=== PATIENT | female | born 2005 | race African-American/Black ===

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

== ENCOUNTER 2024-01-10 15:05 | Emergency (ER) | payer OTHER ==
[2024-01-10 15:22] VITALS: BP 124/63; PULSE 100; RESP 20; TEMP 98
--- NOTE | 2024-01-10 16:12 | ED ---
Lower Extremity Injury HPI - General Chief Complaint: Extremity Injury, Lower Stated Complaint: fall,ankle injury Time Seen by Provider: 01/10/24 15:41 Source: patient Mode of arrival: wheelchair Limitations: no limitations - History of Present Illness Initial Comments: Jackie 19-year-old female presents ER today for evaluation of right ankle pain. Patient reports that yesterday evening she slipped while walking down the stairs and fell hitting her right ankle. Since that time she has had redness swelling and pain. Pain is worse with weightbearing. Patient states she has been applying ice and keeping it elevated with minimal relief. - Related Data Previous Rx's Medication Instructions Recorded Ondansetron Odt [Zofran Odt] 4 mg PO Q8HR PRN #20 tab 10/19/22 Allergies Allergy/AdvReac Type Severity Reaction Status Date / Time amoxicillin Allergy Swelling Verified 01/27/23 10:47 Review of Systems ROS Statement: Those systems with pertinent positive or pertinent negative responses have been documented in the HPI. ROS Other: All systems not noted in ROS Statement are negative. Past Medical History Past Medical History: Asthma History of Any Multi-Drug Resistant Organisms: None Reported Past Surgical History: No Surgical Hx Reported Past Psychological History: Anxiety Smoking Status: Never smoker Past Alcohol Use History: None Reported Past Drug Use History: Marijuana General Exam - General Exam Comments Initial Comments: Physical Exam GENERAL: Patient is well-developed and well-nourished. Patient is nontoxic and well-hydrated and is in no distress. HENT: Normocephalic, Atraumatic. EYES: PERRL, EOMI PULMONARY: Unlabored respirations. CARDIOVASCULAR: RRR Warm and well perfused extremities ABDOMEN: Non-distended SKIN: Bruising over the lateral malleolus of the right ankle : Deferred NEUROLOGIC: Alert and oriented Normal speech Normal gait MUSCULOSKELETAL: Effusion of right ankle with decreased range of motion PSYCHIATRIC: No SI/HI Limitations: no limitations Course Vital Signs 01/10/24 15:12 Temperature 98 F Pulse Rate 100 Respiratory 20 Rate Blood Pressure 124/63 O2 Sat by Pulse 99 Oximetry Medical Decision Making - Medical Decision Making Was pt. sent in by a medical professional or institution (, PA, CHAIN PERSON, urgent care, hospital, or halfway...) When possible be specific @ -No Did you speak to anyone other than the patient for history (EMS, parent, family, police, friend...)? What history was obtained from this source @ -No Did you review nursing and triage notes (agree or disagree)? Why? @ -I reviewed and agree with nursing and triage notes Were old charts reviewed (outside hosp., previous admission, EMS record, old EKG, old radiological studies, urgent care reports/EKG's, halfway records)? Report findings @ -No old charts were reviewed Differential Diagnosis (chest pain, altered mental status, abdominal pain women, abdominal pain men, vaginal bleeding, weakness, fever, dyspnea, syncope, headache, dizziness, GI bleed, back pain, seizure, CVA, palpatations, mental health)? @ -Not applicable EKG interpreted by me (3pts min.). @ -As above X-rays interpreted by me (1pt min.). @ -No obvious fractures or dislocations soft tissues swelling noted CT interpreted by me (1pt min.). @ -None done U/S interpreted by me (1pt. min.). @ -None done What testing was considered but not performed or refused? (CT, X-rays, U/S, labs)? Why? @ -None What meds were considered but not given or refused? Why? @ -None Did you discuss the management of the patient with other professionals (professionals i.e. , PA, CHAIN PERSON, lab, RT, psych nurse, social sciences research scientist, front desk representative, teacher, vessel traffic officer, caseworker)? Give summary @ -No Was smoking cessation discussed for >3mins.? @ -No Was critical care preformed (if so, how long)? @ -No Were there social determinants of health that impacted care today? How? (Homelessness, low income, unemployed, alcoholism, drug addiction, transportation, low edu. Level, literacy, decrease access to med. care, senior living, rehab)? @ -No Was there de-escalation of care discussed even if they declined (Discuss DNR or withdrawal of care, Hospice)? DNR status @ -No What co-morbidities impacted this encounter? (DM, HTN, Smoking, COPD, CAD, Cancer, CVA, ARF, Chemo, Hep., AIDS, mental health diagnosis, sleep apnea, morbid obesity)? @ -None Was patient admitted / discharged? Hospital course, mention meds given and route, prescriptions, significant lab abnormalities, going to OR and other pertinent info. @ -Left without completing care The patient was seen and evaluated history is obtained from patient, x-ray was obtained patient's pain was treated with Toradol. Patient did not want a wait for results and walked out of the ER. Undiagnosed new problem with uncertain prognosis? @ -No Drug Therapy requiring intensive monitoring for toxicity (Heparin, Nitro, Insulin, Cardizem)? @ -No Were any procedures done? @ -No Diagnosis/symptom? @ -Right ankle pain Acute, or Chronic, or Acute on Chronic? @ -Acute Uncomplicated (without systemic symptoms) or Complicated (systemic symptoms)? @ -Default Side effects of treatment? @ -No Exacerbation, Progression, or Severe Exacerbation? @ -No Poses a threat to life or bodily function? How? (Chest pain, [place], [place], pneumonia, PE, COPD, DKA, ARF, appy, cholecystitis, CVA, Diverticulitis, Homicidal, Suicidal, threat to staff... and all critical care pts) @ -No Disposition Clinical Impression: Right ankle pain Disposition: HOME SELF-CARE Condition: Stable Is patient prescribed a controlled substance at d/c from ED?: No Referrals: None,Stated [Primary Care Provider] - 1-2 days Aubrey Lilly MD [Medical Doctor] - 1-2 days
[2024-01-10] MEDS: KETOROLAC 15 MG/ML 1 ML VIAL IM STA (16:29)
--- NOTE | 2024-01-10 17:28 | XR ---
EXAMINATION TYPE: XR ankle complete RT DATE OF EXAM: 01/10/2024 COMPARISON: NONE HISTORY: 19 year-old female right ankle injury, pain and swelling TECHNIQUE: 3 views FINDINGS: Mild lateral soft tissue swelling. Ankle mortise is congruent. There is subtle cortical irr egularity along the lateral margin of the distal fibula, suspected physeal scar. Preservation of the distal tibiofibular overlap. Otherwise, no acute fracture, subluxation, dislocation is seen. IMPRESSION: 1. Mild lateral soft tissue swelling. There is slight cortical irregularity along the lateral margin of the distal fibula probably related to a physeal scar. Correlate for any point tenderness to exclud e a subtle incomplete cortical fracture. Follow up in 10-14 days to reassess as clinically indicated. 2. No other acute osseous abnormality seen.
== END 2024-01-10 17:50 | disposition home or self-care (01) ==
LOC: EC 15:05
DX: M25.571 Pain in right ankle and joints of right foot (principal); J45.909 Unspecified asthma, uncomplicated; F12.90 Cannabis use, unspecified, uncomplicated; Z86.59 Personal history of other mental and behavioral disorders; Z88.0 Allergy status to penicillin; W10.9XXA Fall (on) (from) unspecified stairs and steps, initial encounter
CPT/HCPCS: 73610; 99283; 96372; J1885

== ENCOUNTER 2024-03-20 15:03 | Emergency (ER) | payer OTHER ==
--- NOTE | 2024-03-20 15:19 | ED ---
Abdominal Pain HPI - General Source: patient, family, RN notes reviewed Mode of arrival: wheelchair Limitations: no limitations <Sylvia Elizabeth - Last Filed: 03/20/24 15:18> - General Source: RN notes reviewed <Cortney Javed - Last Filed: 03/20/24 21:33> - General Stated Complaint: stomach pain Time Seen by Provider: 03/20/24 15:18 - History of Present Illness Initial Comments: Quick note: 19-year-old female presenting to the ER with a chief complaint of abdominal pain. Patient states she woke up this morning in extreme suprapubic abdominal pain with nausea and vomiting. Patient also states she has not had her menstrual cycle in 3 months. She has taken 4 urine test which were negative. Admits to vaginal spotting yesterday. Also admits to recent chills and history of ovarian cyst. (Sylvia Elizabeth) 19-year-old female with history of ovarian cyst presenting to the ER with abdominal pain x 1 day. Patient states she woke up this morning with severe suprapubic pain that radiates to the back with nausea and vomiting. She describ es the pain as sharp and intermittently worsens. Patient reports she has not had her menstrual cycle in 3 months and has taken 4 urine test which are all negative. She admits to vaginal spotting yesterday. She is not able to keep anything down due to the vomiting. She tried taking Tylenol for the pain with little relief. She has never had this pain before. Denies dysuria, urinary frequency, urinary urgency, history of kidney stones. (Cortney Javed) - Related Data Previous Rx's Medication Instructions Recorded Ondansetron Odt [Zofran Odt] 4 mg PO Q8HR PRN #20 tab 10/19/22 Allergies Allergy/AdvReac Type Severity Reaction Status Date / Time amoxicillin Allergy Swelling Verified 03/20/24 15:41 Review of Systems ROS Other: All systems not noted in ROS Statement are negative. <Sylvia Elizabeth - Last Filed: 03/20/24 15:18> ROS Other: All systems not noted in ROS Statement are negative. <Cortney Javed - Last Filed: 03/20/24 21:33> ROS Statement: Those systems with pertinent positive or pertinent negative responses have been documented in the HPI. Past Medical History Past Medical History: Asthma History of Any Multi-Drug Resistant Organisms: None Reported Past Surgical History: No Surgical Hx Reported Past Psychological History: Anxiety Smoking Status: Never smoker Past Alcohol Use History: None Reported Past Drug Use History: Marijuana <Sylvia Elizabeth - Last Filed: 03/20/24 15:18> General Exam <Sylvia Elizabeth - Last Filed: 03/20/24 15:18> General appearance: alert, in no apparent distress, anxious Head exam: Present: atraumatic, normocephalic, normal inspection Eye exam: Present: normal appearance, PERRL, EOMI. Absent: scleral icterus, conjunctival injection, periorbital swelling ENT exam: Present: normal exam, mucous membranes moist Respiratory exam: Present: normal lung sounds bilaterally. Absent: respiratory distress, wheezes, rales, rhonchi, stridor Cardiovascular Exam: Present: regular rate, normal rhythm, normal heart sounds. Absent: systolic murmur, diastolic murmur, rubs, gallop, clicks GI/Abdominal exam: Present: soft, tenderness (Diffuse tenderness in suprapubic area.), normal bowel sounds. Absent: distended, guarding, rebound, rigid Extremities exam: Present: normal inspection, full ROM, normal capillary refill. Absent: tenderness, pedal edema, joint swelling, calf tenderness Back exam: Present: normal inspection. Absent: CVA tenderness (R), CVA tenderness (L), rash noted Neurological exam: Present: alert, oriented X3, CN II-XII intact Psychiatric exam: Present: normal affect, normal mood, anxious Skin exam: Present: warm, dry, intact, normal color. Absent: rash <Cortney Javed - Last Filed: 03/20/24 21:33> - General Exam Comments Initial Comments: Visual Physical Exam Vital signs reviewed General: Uncomfortable and in pain Head: Normocephalic, atraumatic Eyes: PERRLA, EOMI ENT: Airway patent Chest: Nonlabored breathing Skin: No visual rash, normal skin tone Neuro: Alert and oriented 3 Musculoskeletal: No gross abnormalities (Sylvia Elizabeth) Course Vital Signs 03/20/24 03/20/24 03/20/24 15:37 19:00 19:40 Temperature 98 F 98.1 F 98.8 F Pulse Rate 92 60 106 H Respiratory 18 18 18 Rate Blood Pressure 106/72 100/52 113/89 O2 Sat by Pulse 98 96 95 Oximetry 03/20/24 20:58 Temperature Pulse Rate 72 Respiratory 18 Rate Blood Pressure 131/68 O2 Sat by Pulse 95 Oximetry Medical Decision Making <Sylvia Elizabeth - Last Filed: 03/20/24 15:18> - Lab Data Result diagrams: 03/20/24 16:28 03/20/24 16:28 <Cortney Javed - Last Filed: 03/20/24 21:33> - Medical Decision Making I performed the quick note portion of this chart. Electronically signed by Sylvia Elizabeth PA-C (Sylvia Elizabeth) Was pt. sent in by a medical professional or institution ([facility], YOUTH OFFICER, urgent care, hospital, or fdc...) When possible be specific @ -No Did you speak to anyone other than the patient for history (EMS, parent, family, police, friend...)? What history was obtained from this source @ -Patient's boyfriend supplemented history Did you review nursing and triage notes (agree or disagree)? Why? @ -I reviewed and agree with nursing and triage notes Were old charts reviewed (outside hosp., previous admission, EMS record, old EKG, old radiological studies, urgent care reports/EKG's, fdc records)? Report findings @ -No old charts were reviewed Differential Diagnosis (chest pain, altered mental status, abdominal pain women, abdominal pain men, vaginal bleeding, weakness, fever, dyspnea, syncope, headache, dizziness, GI bleed, back pain, seizure, CVA, palpatations, mental health, musculoskeletal)? @ -Differential Abdominal Pain Women: Appendicitis, Cholecystitis, diverticulosis, ischemic bowel, pancreatitis, hepatitis, UTI, gastroenteritis, AAA, incarcerated hernia, bowel obstruction, constipation, inflammatory bowel, hepatitis, peptic ulcer disease, splenic infarction, perforated viscus, vulvitis, ovarian torsion, PID, kidney stone, placenta abruption, this is not meant to be an all-inclusive list EKG interpreted by me (3pts min.). @ -None X-rays interpreted by me (1pt min.). @ -None done CT interpreted by me (1pt min.). @ -CT of abdomen pelvis reveal large left ovary with higher density fluid in the pelvis, suggesting hemorrhagic cyst U/S interpreted by me (1pt. min.). @ -Pelvic ultrasound reveals moderate free fluid in abdomen, heterogeneous left ovary with underlying complex lesion, right ovary not visualized due to bowel gas What testing was considered but not performed or refused? (CT, X-rays, U/S, labs)? Why? @ -None What meds were considered but not given or refused? Why? @ -None Did you discuss the management of the patient with other professionals (professionals i.e. , PA, YOUTH OFFICER, lab, RT, psych nurse, social worker aide, door to door lead generation, teacher, combat information center officer, correctional counselor/case manager)? Give summary @ -No Was smoking cessation discussed for >3mins.? @ -No Was critical care preformed (if so, how long)? @ -No Were there social determinants of health that impacted care today? How? (Homelessness, low income, unemployed, alcoholism, drug addiction, transportation, low edu. Level, literacy, decrease access to med. care, senior care, rehab)? @ -No Was there de-escalation of care discussed even if they declined (Discuss DNR or withdrawal of care, Hospice)? DNR status @ -No What co-morbidities impacted this encounter? (DM, HTN, Smoking, COPD, CAD, Cancer, CVA, ARF, Chemo, Hep., AIDS, mental health diagnosis, sleep apnea, morbid obesity)? @ -None Was patient admitted / discharged? Hospital course, mention meds given and route, prescriptions, significant lab abnormalities, going to OR and other pertinent info. @ -Patient was discharged. Patient was seen and evaluated for suprapubic pain since this morning. Patient has not had a menstrual period in 3 months and admits intermittent vaginal spotting. Vitals are within normal limits. Ultrasound performed which revealed moderate free fluid in abdomen, heterogeneous left ovary with underlying complex lesion, right ovary not visualized due to bowel gas. Lab work unremarkable. Urine unremarkable and urine negative. Patient was given Toradol, Zofran, and IV fluids. Due to right ovary not visualized due to bowel gas, CT of abdomen and pelvis was performed to rule out ovarian torsion. CT of abdomen pelvis revealed large left ovary with high density fluid in the pelvis, consistent with hemorrhagic cyst, no sign of torsion or inflammation.. Patient was feeling much better upon reevaluation and is sitting up, conversing and laughing with boyfriend comfortably on stretcher. Discussed diagnosis of hemorrhagic left cyst with patient. Strict return/alarm symptoms discussed with patient in detail patient shows understanding and agrees to plan. Advise close follow-up with ELEVATOR CONDUCTOR for repeat ultrasound. Patient discharged in stable condition. Case discussed with Dr. Warner. Undiagnosed new problem with uncertain prognosis? @ -No Drug Therapy requiring intensive monitoring for toxicity (Heparin, Nitro, Insulin, Cardizem)? @ -No Were any procedures done? @ -No Diagnosis/symptom? @ -Left hemorrhagic cyst Acute, or Chronic, or Acute on Chronic? @ -Acute Uncomplicated (without systemic symptoms) or Complicated (systemic symptoms)? @ -Complicated Side effects of treatment? @ -No Exacerbation, Progression, or Severe Exacerbation? @ -No Poses a threat to life or bodily function? How? (Chest pain, USA, PA, pneumonia, PE, COPD, DKA, ARF, appy, cholecystitis, CVA, Diverticulitis, Homicidal, Suicidal, threat to staff... and all critical care pts) @ -No (Cortney Javed) - Lab Data Lab Results 03/20/24 03/20/24 03/20/24 Range/Units 16:28 16:28 16:57 WBC 9.1 (4.0-11.0) k/uL RBC 4.15 (3.80-5.40) m/uL Hgb 13.1 (11.4-16.0) gm/dL Hct 40.7 (34.0-46.0) % MCV 97.9 (80.0-100.0) fL MCH 31.5 (25.0-35.0) pg MCHC 32.2 (31.0-37.0) g/dL RDW 14.5 (11.5-15.5) % Plt Count 268 (150-450) k/uL MPV 7.5 Neutrophils % 69 % Lymphocytes % 24 % Monocytes % 5 % Eosinophils % 1 % Basophils % 1 % Neutrophils # 6.3 (1.3-7.7) k/uL Lymphocytes # 2.2 (1.0-4.8) k/uL Monocytes # 0.4 (0-1.0) k/uL Eosinophils # 0.1 (0-0.7) k/uL Basophils # 0.1 (0-0.2) k/uL Sodium 143 (137-145) mmol/L Potassium 4.2 (3.5-5.1) mmol/L Chloride 108 H (98-107) mmol/L Carbon Dioxide 20 L (22-30) mmol/L Anion Gap 15 mmol/L BUN 6 L (7-17) mg/dL Creatinine 0.52 (0.52-1.04) mg/dL Est GFR (CKD-EPI)AfAm >90 (>60 ml/min/1.73 sqM) Est GFR (CKD-EPI)NonAf >90 (>60 ml/min/1.73 sqM) Glucose 117 H (74-99) mg/dL Plasma Lactic Acid Rajiv (0.7-2.0) mmol/L Calcium 9.5 (8.4-10.2) mg/dL Total Bilirubin 1.2 (0.2-1.3) mg/dL AST 36 (14-36) U/L ALT 19 (4-34) U/L Alkaline Phosphatase 60 (38-126) U/L Total Protein 7.9 (6.3-8.2) g/dL Albumin 5.0 (3.5-5.0) g/dL Urine Color Yellow Urine Appearance Cloudy H (Clear) Urine pH 5.5 (5.0-8.0) Ur Specific [place] 1.025 (1.001-1.035) Urine Protein Trace H (Negative) Urine Glucose (UA) Negative (Negative) Urine Ketones Negative (Negative) Urine Blood Negative (Negative) Urine Nitrite Negative (Negative) Urine Bilirubin Negative (Negative) Urine Urobilinogen <2.0 (<2.0) mg/dL Ur Leukocyte Esterase Moderate H (Negative) Urine RBC 10 H (0-5) /hpf Urine WBC 18 H (0-5) /hpf Ur Squamous Epith Cells 3 (0-4) /hpf Urine Mucus Few H (None) /hpf Urine HCG, Qual (Not Detectd) 03/20/24 03/20/24 Range/Units 16:57 19:36 WBC (4.0-11.0) k/uL RBC (3.80-5.40) m/uL Hgb (11.4-16.0) gm/dL Hct (34.0-46.0) % MCV (80.0-100.0) fL MCH (25.0-35.0) pg MCHC (31.0-37.0) g/dL RDW (11.5-15.5) % Plt Count (150-450) k/uL MPV Neutrophils % % Lymphocytes % % Monocytes % % Eosinophils % % Basophils % % Neutrophils # (1.3-7.7) k/uL Lymphocytes # (1.0-4.8) k/uL Monocytes # (0-1.0) k/uL Eosinophils # (0-0.7) k/uL Basophils # (0-0.2) k/uL Sodium (137-145) mmol/L Potassium (3.5-5.1) mmol/L Chloride (98-107) mmol/L Carbon Dioxide (22-30) mmol/L Anion Gap mmol/L BUN (7-17) mg/dL Creatinine (0.52-1.04) mg/dL Est GFR (CKD-EPI)AfAm (>60 ml/min/1.73 sqM) Est GFR (CKD-EPI)NonAf (>60 ml/min/1.73 sqM) Glucose (74-99) mg/dL Plasma Lactic Acid Rajiv 2.1 H* (0.7-2.0) mmol/L Calcium (8.4-10.2) mg/dL Total Bilirubin (0.2-1.3) mg/dL AST (14-36) U/L ALT (4-34) U/L Alkaline Phosphatase (38-126) U/L Total Protein (6.3-8.2) g/dL Albumin (3.5-5.0) g/dL Urine Color Urine Appearance (Clear) Urine pH (5.0-8.0) Ur Specific [place] (1.001-1.035) Urine Protein (Negative) Urine Glucose (UA) (Negative) Urine Ketones (Negative) Urine Blood (Negative) Urine Nitrite (Negative) Urine Bilirubin (Negative) Urine Urobilinogen (<2.0) mg/dL Ur Leukocyte Esterase (Negative) Urine RBC (0-5) /hpf Urine WBC (0-5) /hpf Ur Squamous Epith Cells (0-4) /hpf Urine Mucus (None) /hpf Urine HCG, Qual Not Detected (Not Detectd) Disposition <Sylvia Elizabeth - Last Filed: 03/20/24 15:18> Is patient prescribed a controlled substance at d/c from ED?: No Time of Disposition: 20:45 <Cortney Javed - Last Filed: 03/20/24 21:33> Clinical Impression: Hemorrhagic cyst of left ovary Disposition: HOME SELF-CARE Condition: Stable Instructions (If sedation given, give patient instructions): Ovarian Cyst (ED) Additional Instructions: Please follow-up with machine gun mechanic for repeat ultrasound. Please return to the Emergency Department if symptoms worsen or any other concerns. Referrals: Joseph Ovalles MD [Primary Care Provider] - 1-2 days Jennifer Mcfarlane DO [Doctor of Osteopathic Medicine] - 1-2 days
[2024-03-20 16:16] VITALS: RESP 18
[2024-03-20 16:33] LABS: Basophils # (A) 0.1 k/uL (0-0.2); Basophils % (A) 1 %; Eosinophils # (A) 0.1 k/uL (0-0.7); Eosinophils % (A) 1 %; HCT 40.7 % (34.0-46.0); HGB 13.1 gm/dL (11.4-16.0); Lymphocytes # (A) 2.2 k/uL (1.0-4.8); Lymphocytes % (A) 24 %; MCH 31.5 pg (25.0-35.0); MCHC 32.2 g/dL (31.0-37.0); MCV 97.9 fL (80.0-100.0); Mean Platelet Volume 7.5; Monocytes # (A) 0.4 k/uL (0-1.0); Monocytes % (A) 5 %; Neutrophils # (A) 6.3 k/uL (1.3-7.7); Neutrophils % (A) 69 %; Platelet Count 268 k/uL (150-450); RBC 4.15 m/uL (3.80-5.40); RDW 14.5 % (11.5-15.5); WBC 9.1 k/uL (4.0-11.0)
[2024-03-20 16:46] LABS: ALT 19 U/L (4-34); AST 36 U/L (14-36); African American GFR (CKD) >90 (>60 ml/min/1.73 sqM); Alkaline Phosphatase 60 U/L (38-126); Anion Gap 15 mmol/L; Blood Urea Nitrogen 6 mg/dL (7-17); Calcium 9.5 mg/dL (8.4-10.2); Carbon Dioxide 20 mmol/L (22-30); Chloride 108 mmol/L (98-107); Glucose 117 mg/dL (74-99); Non-African American GFR(CKD) >90 (>60 ml/min/1.73 sqM); Potassium 4.2 mmol/L (3.5-5.1); Sodium 143 mmol/L (137-145); Total Bilirubin 1.2 mg/dL (0.2-1.3); Total Protein 7.9 g/dL (6.3-8.2)
[2024-03-20] MEDS: SODIUM CHLORIDE 0.9% 1,000 ML IV STA (17:14)
[2024-03-20] MEDS: KETOROLAC 15 MG/ML 1 ML VIAL IVP STA ×2 (17:15→18:36)
[2024-03-20] MEDS: METOCLOPRAMIDE 5 MG/ML 2 ML VIAL IVP STA (17:16)
[2024-03-20 17:20] LABS: Appearance,Urine Cloudy (Clear); Bilirubin,Urine Negative (Negative); Blood,Urine Negative (Negative); Color,Urine Yellow; Glucose,Urine (UA) Negative (Negative); Ketones,Urine Negative (Negative); Leukocyte Esterase,Urine Moderate (Negative); Mucus,Urine Few /hpf; Nitrite,Urine Negative (Negative); PH, Urine 5.5 (5.0-8.0); Protein,Urine Trace (Negative); RBC,Urine 10 /hpf (0-5); Specific Gravity,Urine 1.025 (1.001-1.035); Squamous Epithelial Cell,Urine 3 /hpf (0-4); Urobilinogen,Urine <2.0 mg/dL (<2.0); WBC,Urine 18 /hpf (0-5)
--- NOTE | 2024-03-20 17:26 | US ---
EXAMINATION TYPE: US transvaginal DATE OF EXAM: 03/20/2024 COMPARISON: None CLINICAL INDICATION: Female, 19 years old with history of suprapubic abdominal pain; pain, fever, jackson y tender throughout exam, G0, LMP 3 months ago TECHNIQUE: TA/TV. Transabdominal sonographic images of the pelvis were acquired. Transvaginal sono graphic images Date of LMP: 3 months ago EXAM MEASUREMENTS: Uterus: 7.0 x 3.6 x 3.9 cm Endometrial Stripe: 0.9 cm Right Ovary: not seen Left Ovary: 5.4 x 4.0 x 4.8 cm 1. Uterus: Retroverted wnl 2. Endometrium: wnl 3. Right Ovary: not seen due to bowel gas, tried transabdominal and unable to see right ovary 4. Left Ovary: large in size, heterogeneous appearance with complex lesion 4.7 x 2.7 x 3.9 Spectral, color and waveform doppler imaging shows good arterial and venous flow within the lt ovar y; there is no evidence for lt ovarian torsion. 5. Bilateral Adnexa: free fluid right side 6. Posterior cul-de-sac: wnl IMPRESSION: 1. Moderate amount of free fluid in the abdomen which is more than normally expected for physiologic free fluid correlate with beta hCG to exclude underlying ectopic .. 2. Heterogenous left ovary with underlying complex lesion suggested. There is appropriate arterial a nd venous spectral waveforms to the left ovary. 3. The right ovary is not definitively visualized due to bowel gas.
--- NOTE | 2024-03-20 19:35 | CT ---
EXAMINATION TYPE: CT abdomen pelvis w con CT DLP: 249.9 mGycm, Automated exposure control for dose reduction was used. DATE OF EXAM: 03/20/2024 7:19 PM COMPARISON: Ultrasound same day. CLINICAL INDICATION:Female, 19 years old with history of abdominal pain, acute, nonlocalized; Abdomin al pain N/V, 3mo late on period. Negative HCG tests and spotting yesterday. TECHNIQUE: Axial CT abdomen pelvis w con;Sagittal and coronal reformats were created on a separate w orkstation. Contrast used:100 mL of Isovue 300 with IV Contrast, (none if empty) Oral contrast used: without Oral Contrast (none if empty) FINDINGS: LOWER CHEST: Unremarkable ABDOMEN LIVER: Unremarkable GALLBLADDER AND BILE DUCTS: Unremarkable. PANCREAS: Unremarkable. SPLEEN: Unremarkable. ADRENAL GLANDS: Unremarkable. KIDNEYS AND URETERS: No evidence of hydronephrosis or renal calculus. The ureters are unremarkable. PELVIS BLADDER: Unremarkable REPRODUCTIVE: There is a large left ovary as seen on same day ultrasound. Hounsfield units of the valentin e fluid in the pelvis measuring up to 29-33. The left ovary measures 6.1 x 3.8 x 5.8 cm ABDOMEN & PEL VIS STOMACH AND BOWEL: No evidence of bowel obstruction. PERITONEUM/RETROPERITONEUM: No evidence of pneumoperitoneum or free fluid. VASCULATURE: No evidence of aortic aneurysm. MUSCULOSKELETAL: No acute osseous abnormalities LYMPH NODES: No gross evidence for lymphadenopathy. SOFT TISSUE/ABDOMINAL WALL: Unremarkable IMPRESSION: Large left ovary with higher density fluid in the pelvis suggestive of hemorrhagic cyst in the absenc e of a positive beta hCG. Short-term follow-up pelvic ultrasound should be considered. Correlate with CBC.
[2024-03-20 20:10] VITALS: TEMP 98.8
[2024-03-20] MEDS: ONDANSETRON 4 MG ODT STARTER PACK 2 TAB BTL PO STA (21:00)
[2024-03-20 21:43] VITALS: BP 131/68; PULSE 72
== END 2024-03-20 21:00 | disposition home or self-care (01) ==
LOC: EC 15:03
DX: N83.202 Unspecified ovarian cyst, left side (principal); F12.90 Cannabis use, unspecified, uncomplicated; Z88.0 Allergy status to penicillin
CPT/HCPCS: 36415; 80053; 83605; 85025; 81001; 81025; 93976; 76856; 76830; 74177; 99284; 96374; 96375; 96361 ×2; J2765; J1885; S0119; Q9967

== ENCOUNTER → 2024-11-05 | Outpatient (CLI) | payer OTHER ==
--- NOTE | 2024-11-05 08:27 | US ---
EXAMINATION TYPE: US pelvis complete transvag DATE OF EXAM: 11/05/2024 COMPARISON: US and CT: 03/20/24 CLINICAL INDICATION: Female, 19 years old with history of N83.209; follow up on cyst TECHNIQUE: Transvaginal (TV) and Transabdominal (TA) . Transabdominal grayscale sonographic images of the pelvis were acquired. Transvaginal sonographic im ages were medically necessary to better assess the following anatomy: ovaries Doppler imaging: Color Doppler Images were obtained. FINDINGS: Date of LMP: End of August 2024, irregular periods EXAM MEASUREMENTS: Uterus: 7.3 x 4.5 x 3.7 cm Endometrial Stripe: 0.8 cm Right Ovary: 2.9 x 2.9 x 2.0 cm Left Ovary: 3.5 x 2.9 x 2.0 cm 1. Uterus: Retroverted wnl 2. Endometrium: wnl 3. Right Ovary: multiple follicles seen 4. Left Ovary: multiple follicles seen 5. Bilateral Adnexa: wnl 6. Posterior cul-de-sac: wnl IMPRESSION: No suspicious findings seen to account for patient's clinical symptoms. [facility], , 11/05/2024 8:24 AM
== END | disposition home or self-care (01) ==
LOC: RADUSWWP 07:21
PROVIDERS: ATTEND Internal Medicine
DX: N83.209 Unspecified ovarian cyst, unspecified side (principal)
CPT/HCPCS: 76830; 76856

== ENCOUNTER 2025-05-08 12:41 | Emergency (ER) | payer OTHER ==
[2025-05-08 13:04] VITALS: RESP 16
--- NOTE | 2025-05-08 13:07 | ED ---
Female Urogenital HPI - General Source: patient, RN notes reviewed Mode of arrival: ambulatory Limitations: no limitations - History of Present Illness Last Menstrual Period: 04/23/25 <JavedCortney - Last Filed: 05/08/25 13:06> - General Source: patient, RN notes reviewed Mode of arrival: ambulatory Limitations: no limitations <Sylvia Snider - Last Filed: 05/11/25 06:38> - General Chief complaint: Urogenital Stated complaint: abdominal pain Time Seen by Provider: 05/08/25 13:06 - History of Present Illness Initial comments: Quick [id number] female presenting for urinary urgency x 2 days. States she feels as though she is not able to fully empty bladder. States it feels similar to previous UTIs. Denies vaginal discharge, abdominal pain, or back pain. (Cortney Javed) Presented the ER for evaluation of urinary frequency. She reports that the past 2 days she feels like she is not able to fully empty her bladder and believes she has UTI. States she does have mild dysuria with initiation of urine. She denies any hematuria, abdominal pain, flank/back pain, abnormal vaginal bleeding or discharge. Patient denies . Patient reports symptoms are similar to previous UTIs. Denies fevers or chills (Sylvia Snider) - Related Data Previous Rx's Medication Instructions Recorded Ondansetron Odt [Zofran Odt] 4 mg PO Q8HR PRN #20 tab 10/19/22 Nitrofurantoin Monohyd/M-Cryst 100 mg PO Q12HR #14 cap 05/08/25 [Macrobid] Allergies Allergy/AdvReac Type Severity Reaction Status Date / Time amoxicillin Allergy Swelling Verified 03/20/24 15:41 Review of Systems ROS Other: All systems not noted in ROS Statement are negative. <Cortney Javed - Last Filed: 05/08/25 13:06> ROS Other: All systems not noted in ROS Statement are negative. <Sylvia Snider - Last Filed: 05/11/25 06:38> ROS Statement: Those systems with pertinent positive or pertinent negative responses have been documented in the HPI. Past Medical History Past Medical History: Asthma History of Any Multi-Drug Resistant Organisms: None Reported Past Surgical History: No Surgical Hx Reported Past Psychological History: Anxiety Smoking Status: Never smoker Past Alcohol Use History: None Reported Past Drug Use History: Marijuana <Cortney Javed - Last Filed: 05/08/25 13:06> General Exam Limitations: no limitations <TelloCortney - Last Filed: 05/08/25 13:06> Limitations: no limitations General appearance: alert, in no apparent distress Respiratory exam: Present: normal lung sounds bilaterally. Absent: respiratory distress, wheezes, rales, rhonchi, stridor Cardiovascular Exam: Present: regular rate, normal rhythm, normal heart sounds. Absent: systolic murmur, diastolic murmur, rubs, gallop, clicks GI/Abdominal exam: Present: soft, normal bowel sounds. Absent: distended, tenderness, guarding, rebound, rigid Back exam: Present: normal inspection Neurological exam: Present: alert, oriented X3, CN II-XII intact Skin exam: Present: warm, dry, intact, normal color. Absent: rash <Sylvia Snider - Last Filed: 05/11/25 06:38> - General Exam Comments Initial Comments: Visual Physical Exam Vital signs reviewed General: Well-appearing, nontoxic, no acute distress. Head: Normocephalic, atraumatic Eyes: PERRLA, EOMI ENT: Airway patent Chest: Nonlabored breathing Skin: No visual rash, normal skin tone Neuro: Alert and oriented 3 Musculoskeletal: No gross abnormalities (Cortney Javed) Course Vital Signs 05/08/25 05/08/25 13:01 15:00 Temperature 98.9 F 98.7 F Pulse Rate 67 64 Respiratory 16 16 Rate Blood Pressure 110/55 112/62 O2 Sat by Pulse 97 98 Oximetry Medical Decision Making <Cortney Javed - Last Filed: 05/08/25 13:06> <Sylvia Snider - Last Filed: 05/11/25 06:38> - Medical Decision Making I completed the quick note portion of this chart signed Cortney Javed PA-C (Cortney Javed) Was pt. sent in by a medical professional or institution ([facility], [facility], urgent care, hospital, or skilled nursing...) When possible be specific @ -No Did you speak to anyone other than the patient for history (EMS, parent, family, police, friend...)? What history was obtained from this source @ -No Did you review nursing and triage notes (agree or disagree)? Why? @ -I reviewed and agree with nursing and triage notes Were old charts reviewed (outside hosp., previous admission, EMS record, old EKG, old radiological studies, urgent care reports/EKG's, skilled nursing records)? Report findings @ -No old charts were reviewed Differential Diagnosis (chest pain, altered mental status, abdominal pain women, abdominal pain men, vaginal bleeding, weakness, fever, dyspnea, syncope, headache, dizziness, GI bleed, back pain, seizure, CVA, palpatations, mental health, musculoskeletal)? @ -UTI, STD, nephrolithiasis, ... This list is not meant to be all- inclusive EKG interpreted by me (3pts min.). @ -None X-rays interpreted by me (1pt min.). @ -None done CT interpreted by me (1pt min.). @ -None done U/S interpreted by me (1pt. min.). @ -None done What testing was considered but not performed or refused? (CT, X-rays, U/S, labs)? Why? @ -None What meds were considered but not given or refused? Why? @ -None Did you discuss the management of the patient with other professionals (professionals i.e. , PA, [employer], lab, RT, psych nurse, social and political studies professor, catering server, teacher, employment security officer, heel caser)? Give summary @ -No Was smoking cessation discussed for >3mins.? @ -No Was critical care preformed (if so, how long)? @ -No Were there social determinants of health that impacted care today? How? (Homelessness, low income, unemployed, alcoholism, drug addiction, transportati on, low edu. Level, literacy, decrease access to med. care, usp, rehab)? @ -No Was there de-escalation of care discussed even if they declined (Discuss DNR or withdrawal of care, Hospice)? DNR status @ -No What co-morbidities impacted this encounter? (DM, HTN, Smoking, COPD, CAD, Cancer, CVA, ARF, Chemo, Hep., AIDS, mental health diagnosis, sleep apnea, morbid obesity)? @ -None Was patient admitted / discharged? Hospital course, mention meds given and route, prescriptions, significant lab abnormalities, going to OR and other pertinent info. @ -Discharge. 20-year-old female presented the ER for evaluation of urinary urgency x 2 days. Vital signs stable. Workup initiated in triage given bed availability in emergency department. Upon my evaluation, patient is well- appearing in no signs of acute distress. There is no CVA tenderness or abdominal tenderness on exam. Urinalysis concerning of infection with greater than 182 WBCs, moderate blood and 76 urine RBCs. Urine hCG negative. Urine will be sent for culture. Patient denying concern of STDs but is agreeable for urine screening. Patient denied prophylactic treatment of STDs. Patient be treated for UTI discharged on Macrobid. I advised her to follow-up closely with PCP after antibiotic completion to ensure resolution of UTI. Return parameters discussed. Patient discharged stable condition. Patient verbally expressed understanding agreement care plan. Case discussed with ED attending Dr. Blanco Undiagnosed new problem with uncertain prognosis? @ -No Drug Therapy requiring intensive monitoring for toxicity (Heparin, Nitro, Insulin, Cardizem)? @ -No Were any procedures done? @ -No Diagnosis/symptom? @ -UTI Acute, or Chronic, or Acute on Chronic? @ -Acute Uncomplicated (without systemic symptoms) or Complicated (systemic symptoms)? @ -Uncomplicated Side effects of treatment? @ -No Exacerbation, Progression, or Severe Exacerbation? @ -No Poses a threat to life or bodily function? How? (Chest pain, [place], [place], pneumonia, PE, COPD, DKA, ARF, appy, cholecystitis, CVA, Diverticulitis, Homicidal, Suicidal, threat to staff... and all critical care pts) @ -No (Sylvia Snider) - Lab Data Lab Results 05/08/25 05/08/25 Range/Units 13:19 13:19 Urine Color Yellow Urine Appearance Cloudy H (Clear) Urine pH 6.5 (5.0-8.0) Ur Specific [place] 1.023 (1.001-1.035) Urine Protein 2+ H (Negative) Urine Glucose (UA) Negative (Negative) Urine Ketones Negative (Negative) Urine Blood Moderate H (Negative) Urine Nitrite Negative (Negative) Urine Bilirubin Negative (Negative) Urine Urobilinogen 2.0 (<2.0) mg/dL Ur Leukocyte Esterase Large H (Negative) Urine RBC 76 H (0-5) /hpf Urine WBC >182 H (0-5) /hpf Ur Squamous Epith Cells 3 (0-4) /hpf Urine Mucus Many H (None) /hpf Urine HCG, Qual Not Detected (Not Detectd) Disposition <Cortney Javed - Last Filed: 05/08/25 13:06> Is patient prescribed a controlled substance at d/c from ED?: No Time of Disposition: 14:35 <Sylvia Snider - Last Filed: 05/11/25 06:38> Clinical Impression: Urinary tract infection Disposition: HOME SELF-CARE Condition: Stable Instructions (If sedation given, give patient instructions): Urinary Tract Infection in Women (ED) Additional Instructions: Be sure to drink plenty of fluids. Take antibiotics as prescribed. Follow-up with PCP to ensure resolution of UTI. Return to the ER for any new or worsening concerns. Prescriptions: Nitrofurantoin Monohyd/M-Cryst [Macrobid] 100 mg PO Q12HR #14 cap Referrals: None,Stated [REFERRING] - 1-2 days [facility] [NON-STAFF] - 1-2 days [facility] Family[facility]icine [NON-STAFF] - 1-2 days Forms: PH Area PCPs
[2025-05-08 13:55] LABS: Bilirubin,Urine Negative (Negative); Blood,Urine Moderate (Negative); Color,Urine Yellow; Glucose,Urine (UA) Negative (Negative); Ketones,Urine Negative (Negative); Leukocyte Esterase,Urine Large (Negative); Mucus,Urine Many /hpf; Nitrite,Urine Negative (Negative); PH, Urine 6.5 (5.0-8.0); Protein,Urine 2+ (Negative); RBC,Urine 76 /hpf (0-5); Specific Gravity,Urine 1.023 (1.001-1.035); Squamous Epithelial Cell,Urine 3 /hpf (0-4); Urobilinogen,Urine 2.0 mg/dL (<2.0); WBC,Urine >182 /hpf (0-5)
[2025-05-08 15:02] VITALS: BP 112/62; PULSE 64; TEMP 98.7
== END 2025-05-08 15:01 | disposition home or self-care (01) ==
LOC: EC 12:41
DX: N39.0 Urinary tract infection, site not specified (principal); Z88.0 Allergy status to penicillin
CPT/HCPCS: 81001; 81025; 87086; 99284